=== PATIENT | female | born 1975 | race Caucasian/White ===

== ENCOUNTER → 2017-08-02 | Outpatient (CLI) | payer OTHER ==
[2017-08-02 19:54] LABS: BASO % 0.2 % (0.0-1.0); EOS % 0.6 % (0.0-3.0); HEMATOCRIT 37.1 % (36.0-47.0); HEMOGLOBIN 12.4 g/dl (12.0-15.5); IMMATURE GRANULOCYTE % 0.3 % (0-3.0); LYMPH # 1.5 10^3/uL (1.5-4.5); LYMPH % 24.5 % (24.0-44.0); MEAN CORPUSCULAR HEMOGLOBIN 30.2 pg (27.0-33.0); MEAN CORPUSCULAR HGB CONC 33.4 g/dl (32.0-36.5); MEAN CORPUSCULAR VOLUME 90.5 fl (80.0-96.0); MONO # 0.6 10^3/uL (0.0-0.8); NEUTROPHILS # 4.1 10^3/uL (1.8-7.7); NEUTROPHILS % 64.4 % (36.0-66.0); PLATELET COUNT, AUTOMATED 205 10^3/uL (150-450); RED CELL DISTRIBUTION WIDTH 12.5 % (11.5-14.5); WHITE BLOOD COUNT 6.3 10^3/uL (4.0-10.0)
[2017-08-02 20:18] LABS: ALBUMIN 4.2 GM/DL (3.2-5.2); ALKALINE PHOSPHATASE 61 U/L (45-117); ALT/SGPT 19 U/L (12-78); ANION GAP 8 MEQ/L (8-16); AST/SGOT 16 U/L (7-37); BILIRUBIN,TOTAL 0.3 MG/DL (0.2-1.0); BLOOD UREA NITROGEN 18 MG/DL (7-18); C REACTIVE PROTEIN QUANTITATIV < 0.30 MG/DL (0.00-0.30); CALCIUM LEVEL 8.6 MG/DL (8.5-10.1); CARBON DIOXIDE LEVEL 27 MEQ/L (21-32); CHLORIDE LEVEL 105 MEQ/L (98-107); CREATININE FOR GFR 0.89 MG/DL (0.55-1.30); FREE T4 1.07 NG/DL (0.76-1.46); GLOMERULAR FILTRATION RATE > 60.0 (>58); GLUCOSE, FASTING 104 MG/DL (70-100); POTASSIUM SERUM 4.2 MEQ/L (3.5-5.1); SODIUM LEVEL 140 MEQ/L (136-145)
[2017-08-02 20:40] LABS: ERYTHROCYTE SEDIMENTATION RATE 9 mm/hr (0-20)
[2017-08-05 00:07] LABS: ANTINUCLEAR ANTIBODIES DIRECT Negative (Negative); Lyme Disease IgG/IgM Antibodie <0.91 ISR (0.00-0.90); Lyme Disease IgM Ab Quantitati <0.80 index (0.00-0.79)
== END ==
LOC: M WUC 16:37
DX: R21 Rash and other nonspecific skin eruption (principal); Z13.220 Encounter for screening for lipoid disorders; Z13.0 Encounter for screening for diseases of the blood and blood-forming organs and certain disorders involving the immune mechanism; Z13.29 Encounter for screening for other suspected endocrine disorder; R53.83 Other fatigue

== ENCOUNTER → 2018-01-25 | Outpatient (CLI) | payer OTHER | LOC: M SMT 11:45 | DX: M79.674 Pain in right toe(s) (principal); M20.11 Hallux valgus (acquired), right foot | CPT/HCPCS: 73630 ==

== ENCOUNTER → 2020-05-27 | Outpatient (CLI) | payer SELFPAY | LOC: M LABSMTC 13:24 | PROVIDERS: ATTEND Pediatrics | DX: Z20.822 Contact with and (suspected) exposure to COVID-19 (principal) ==

== ENCOUNTER → 2020-07-02 | Outpatient (CLI) | payer SELFPAY | LOC: M LABSMTC 11:23 | PROVIDERS: ATTEND Pediatrics | DX: Z11.52 Encounter for screening for COVID-19 (principal) ==

== ENCOUNTER → 2020-08-17 | Outpatient (CLI) | payer SELFPAY | LOC: M LABSMTC 11:29 | PROVIDERS: ATTEND Pediatrics | DX: Z11.52 Encounter for screening for COVID-19 (principal) ==

== ENCOUNTER → 2022-02-18 | Outpatient (CLI) | payer OTHER ==
[2022-02-18 07:12] LABS: BASO % 0.2 % (0.0-1.0); EOS # 0.1 10^3/uL (0.0-0.5); EOS % 0.9 % (0.0-3.0); HEMATOCRIT 37.1 % (36.0-47.0); HEMOGLOBIN 12.3 g/dl (12.0-15.5); LYMPH # 1.1 10^3/uL (1.5-5.0); LYMPH % 16.8 % (24.0-44.0); MEAN CORPUSCULAR HEMOGLOBIN 30.3 pg (27.0-33.0); MEAN CORPUSCULAR HGB CONC 33.2 g/dl (32.0-36.5); MEAN CORPUSCULAR VOLUME 91.4 fl (80.0-96.0); MONO # 0.5 10^3/uL (0.0-0.8); MONO % 7.5 % (2.0-8.0); NEUTROPHILS # 4.8 10^3/uL (1.5-8.5); NEUTROPHILS % 74.3 % (36.0-66.0); PLATELET COUNT, AUTOMATED 209 10^3/uL (150-450); RED BLOOD COUNT 4.06 10^6/uL (4.00-5.40); WHITE BLOOD COUNT 6.4 10^3/uL (4.0-10.0)
[2022-02-18 07:28] LABS: HEMOGLOBIN A1c 5.1 %
[2022-02-18 08:04] LABS: ALBUMIN 3.6 GM/DL (3.2-5.2); ALT/SGPT 17 U/L (12-78); BILIRUBIN,TOTAL 0.5 MG/DL (0.2-1.0); BLOOD UREA NITROGEN 10 MG/DL (7-18); CALCIUM LEVEL 8.5 MG/DL (8.5-10.1); CARBON DIOXIDE LEVEL 29 MEQ/L (21-32); CHLORIDE LEVEL 105 MEQ/L (98-107); CHOLESTEROL LEVEL 157 MG/DL (<200); CREATININE FOR GFR 0.85 MG/DL (0.55-1.30); FREE T4 1.11 NG/DL (0.76-1.46); GLOMERULAR FILTRATION RATE > 60.0 (>58); GLUCOSE, FASTING 90 MG/DL (70-100); HDL CHOLESTEROL 50 MG/DL (>40); LDL CHOLESTEROL 95 MG/DL (<100); NON-HDL-C 107 MG/DL; SODIUM LEVEL 139 MEQ/L (136-145); TOTAL PROTEIN 6.3 GM/DL (6.4-8.2); TRIGLYCERIDES LEVEL 59 MG/DL (<150)
[2022-02-18 08:49] LABS: TOTAL 25(OH) VITAMIN D 37.9 NG/ML (30.0-100.0)
== END ==
LOC: M LAB 06:31
PROVIDERS: ATTEND Physician Assistant
DX: K21.00 Gastro-esophageal reflux disease with esophagitis, without bleeding (principal); E55.9 Vitamin D deficiency, unspecified

== ENCOUNTER → 2023-05-02 | Outpatient (CLI) | payer OTHER ==
[2023-05-02 16:35] LABS: BASO % 0.2 % (0.0-1.0); EOS # 0.1 10^3/uL (0.0-0.5); EOS % 0.8 % (0.0-3.0); HEMATOCRIT 37.7 % (36.0-47.0); HEMOGLOBIN 12.6 g/dl (12.0-15.5); LYMPH # 1.7 10^3/uL (1.5-5.0); LYMPH % 18.9 % (24.0-44.0); MEAN CORPUSCULAR HEMOGLOBIN 30.1 pg (27.0-33.0); MEAN CORPUSCULAR HGB CONC 33.4 g/dl (32.0-36.5); MEAN CORPUSCULAR VOLUME 90.2 fl (80.0-96.0); MONO # 0.7 10^3/uL (0.0-0.8); MONO % 7.5 % (2.0-8.0); NEUTROPHILS # 6.6 10^3/uL (1.5-8.5); NEUTROPHILS % 72.3 % (36.0-66.0); PLATELET COUNT, AUTOMATED 229 10^3/uL (150-450); RED BLOOD COUNT 4.18 10^6/uL (4.00-5.40); WHITE BLOOD COUNT 9.1 10^3/uL (4.0-10.0)
[2023-05-02 17:14] LABS: ALKALINE PHOSPHATASE 62 U/L (46-116); ALT/SGPT 16 U/L (7.0-40); AST/SGOT 14 U/L (<34); BILIRUBIN,TOTAL 0.3 MG/DL (0.3-1.2); BLOOD UREA NITROGEN 17 MG/DL (9-23); CALCIUM LEVEL 8.8 MG/DL (8.5-10.1); CARBON DIOXIDE LEVEL 29 MMOL/L (20-31); CHLORIDE LEVEL 101 MMOL/L (98-107); CK-MB VALUE MASS < 1.0 NG/ML (<3.6); CPK CREATINE PHOSPHOKINASE 84 U/L (34-145); CREATININE FOR GFR 0.68 MG/DL (0.55-1.30); GLOMERULAR FILTRATION RATE > 60.0 (>58); GLUCOSE, FASTING 87 MG/DL (60-100); MB/CK RELATIVE INDEX 1.19 (< OR =4); POTASSIUM SERUM 3.6 MMOL/L (3.5-5.1); SODIUM LEVEL 136 MMOL/L (136-145); TOTAL PROTEIN 6.5 G/DL (5.7-8.2)
[2023-05-02 17:15] LABS: THYROID STIMULATING HORMONE 1.586 uIU/ML (0.55-4.78)
[2023-05-02 17:16] LABS: FREE T4 1.27 NG/DL (0.89-1.76)
== END ==
LOC: M RAD 15:58
PROVIDERS: ATTEND Physician Assistant
DX: R07.89 Other chest pain (principal)

== ENCOUNTER → 2023-05-04 | Outpatient (REF) | payer OTHER | LOC: M LAB REF 10:15 | PROVIDERS: ATTEND Physician Assistant | DX: K29.00 Acute gastritis without bleeding (principal) ==

== ENCOUNTER → 2024-02-13 | Outpatient (CLI) | payer OTHER | LOC: M RAD 16:16 | PROVIDERS: ATTEND Physician Assistant | DX: J20.9 Acute bronchitis, unspecified (principal) ==

== ENCOUNTER 2024-07-02 01:19 | Emergency (ER) | payer OTHER ==
[~2024-07-02] VITALS: Ht 160 cm; Wt 66.2 kg
[2024-07-02 02:12] LABS: PROTEIN, URINE MANUAL REFLEX 3+ mg/dL (NEGATIVE); SP GRAVITY,URINE MANUAL REFLEX 1.015 (1.002-1.035)
[2024-07-02 02:13] LABS: KETONE, URINE MANUAL REFLEX NEGATIVE (NEGATIVE); NITRITE, URINE MANUAL RFX POSITIVE (NEGATIVE); UROBILINOGEN, UA MANUAL REFLEX NORMAL (NORMAL)
[2024-07-02 02:23] LABS: HYALINE CAST, URINE RFX NONE SEEN /lpf (0-1); RBC, URINE MAN REFLEX TNTC /hpf (0-3); SQUAMOUS EPITHELIAL URINE RFX SMALL AMOUNT /hpf (SMALL AMT); WBC, URINE MAN RFX 15-20 /hpf (0-3)
[2024-07-02 02:24] LABS: MICROSCOPIC EXAM RFX PERFORMED
[2024-07-02 03:45] VITALS: O2SAT 100
[2024-07-02] MEDS ORDERED: PYRI1TAB5 PO (04:17)
[2024-07-02] MEDS ORDERED: CEFD300C PO (04:17)
[2024-07-02] MEDS: CEFDINIR 300 MG CAP (OMNICEF) PO ONE (04:30)
[2024-07-02] MEDS: PHENAZOPYRIDINE 100 MG TAB PO ONE (04:31)
[2024-07-02 04:34] VITALS: BP 103/65; TEMP 97
== END 2024-07-02 04:41 | disposition home or self-care (01) ==
LOC: M ED 01:19
DX: N39.0 Urinary tract infection, site not specified (principal); F10.10 Alcohol abuse, uncomplicated; Z79.2 Long term (current) use of antibiotics; Z79.899 Other long term (current) drug therapy

== ENCOUNTER → 2024-08-22 | Outpatient (CLI) | payer OTHER ==
[~2024-08-22] MED LIST: CEFD300C PO; PYRI1TAB5 PO
== END ==
LOC: M WUC 15:46
PROVIDERS: ATTEND Student in an Organized Health Care Education/Training Program
DX: M25.522 Pain in left elbow (principal)

== ENCOUNTER → 2024-10-17 | Outpatient (CLI) | payer OTHER | LOC: M WHC 15:52 | PROVIDERS: ATTEND Obstetrics & Gynecology | DX: N91.2 Amenorrhea, unspecified (principal); D25.9 Leiomyoma of uterus, unspecified; N83.292 Other ovarian cyst, left side ==